=== PATIENT | male | born 1980 | race Caucasian/White ===

== ENCOUNTER 2017-11-21 09:00 | Emergency (ER) | payer BC ==
--- NOTE | 2017-11-21 09:23 | ED ---
Influenza-Like Illness - HPI Summary HPI Summary: 37M presents with fever and cough for past two days. He states that he feels ache. He has been taking dayquil with some relief. He admits to occasionally SOB but no chest pain. He denies any abdominal pain nausea or vomiting. He denies any sore throat. He admits to sinus congestion. He states has sinus infection. He was not able to attend work yesterday due to symptoms. He is a smoker. - Allergy/Home Medications Allergies/Adverse Reactions: Allergies Allergy/AdvReac Type Severity Reaction Status Date / Time No Known Allergies Allergy Verified 11/21/17 09:20 Home Medications: Home Medications NK [No Home Medications Reported] 11/21/17 [History Confirmed 11/21/17] PMH/Surg Hx/FS Hx/Imm Hx Endocrine/Hematology History: Denies: Hx Anticoagulant Therapy Cardiovascular History: Denies: Hx Myocardial Infarction - Surgical History Surgery Procedure, Year, and Place: testicular hernia Infectious Disease History: Denies: Hx Clostridium Difficile, Hx Hepatitis, Hx Human Immunodeficiency Virus (HIV), Hx of Known/Suspected MRSA, Hx Shingles, Hx Tuberculosis, Hx Known/ Suspected VRE, Hx Known/Suspected VRSA, History Other Infectious Disease, Traveled Outside the [place] in Last 30 Days - Family History Known Family History: Positive: Hypertension - Social History Alcohol Use: Occasionally Alcohol Amount: large volume but only once monthly Substance Use Type: Reports: None Smoking Status (MU): Heavy Every Day Tobacco Smoker Amount Used/How Often: 10 daily Review of Systems Positive: Fever, Fatigue Negative: Chest Pain Positive: Shortness Of Breath, Cough All Other Systems Reviewed And Are Negative: Yes Physical Exam Triage Information Reviewed: Yes Vital Signs Reviewed: Yes Appearance: Positive: Well-Appearing Skin: Positive: Warm, Dry Head/Face: Positive: Normal Head/Face Inspection Eyes: Positive: Normal, EOMI, JUAN MIGUEL, Conjunctiva Clear ENT: Positive: Pharynx normal, Nasal congestion, TMs normal Neck: Positive: Supple, Nontender, No Lymphadenopathy Respiratory/Lung Sounds: Positive: Clear to Auscultation, Breath Sounds Present Cardiovascular: Positive: Normal, RRR Abdomen Description: Positive: Nontender, Soft Bowel Sounds: Positive: Present Musculoskeletal: Positive: Normal Neurological: Positive: Normal Psychiatric: Positive: Normal Flu Symptom Course/Dx - Course Course Of Treatment: 37M presents with fever and cough for past two days. He states that he feels ache. He has been taking dayquil with some relief. He admits to occasionally SOB but no chest pain. He denies any abdominal pain nausea or vomiting. He denies any sore throat. He admits to sinus congestion. He states has sinus infection. He was not able to attend work yesterday due to symptoms. He is a smoker. on exam lungs CTA. pharynx normal. flu B pos. discussed and patient does not want tamiflu. patient understand and agrees with plan. - Diagnoses Differential Diagnosis/HQI/PQRI: Positive: Influenza, Pneumonia, Upper Respiratory Infection Provider Diagnoses: Influenza B Discharge - Discharge Plan Condition: Good Disposition: HOME Patient Education Materials: Influenza (ED) Forms: *Work Release Referrals: [facility] [Outside] Additional Instructions: Take Tylenol and ibuprofen for muscle aches and fever every 6 hours Saline rinse can be used multiple times a day for nasal congestion Use humidifier in room or place bowls of warm water around room for cough Try to drink fluids every hour and eat a small snack every 3 hours Establish care with primary Return to ED if develop any new or worsening symptoms
[2017-11-21 09:30] VITALS: BP 115/89
== END 2017-11-21 10:05 | disposition home or self-care (01) ==
LOC: UCEAST 09:00
DX: J10.1 Influenza due to other identified influenza virus with other respiratory manifestations (principal); F17.200 Nicotine dependence, unspecified, uncomplicated
CPT/HCPCS: 87502; 99211; G0463

== ENCOUNTER 2019-06-27 04:25 | Emergency (ER) | payer BC, OTHER ==
--- NOTE | 2019-06-27 05:35 | ED ---
Complex/Multi-Sys Presentation - HPI Summary HPI Summary: 39 year old M presenting to [facility] accompanied by complains of fevers, chills, congestion, cough, wheezing, myalgia, nausea since Tuesday06/25/19. The patient rates the pain 8/10 in severity. Symptoms aggravated by nothing. Symptoms alleviated by DayQuil and Sudafed with expectorant and nebulizer. Patient states he has had pneumonia before. Has recently been around sick people (his and child). Patient states he works for [employer]. Patient is a heavy every day tobacco smoker. - History Of Current Complaint Chief Complaint: EDFluSymptoms Time Seen by Provider: 06/27/19 05:23 Hx Obtained From: Patient Onset/Duration: Lasting Days - 06/25/19, Still Present Timing: Constant Severity Currently: Severe Aggravating Factor(s): Nothing Alleviating Factor(s): DayQuil and Sudafed with expectorant and nebulizer - Allergies/Home Medications Allergies/Adverse Reactions: Allergies Allergy/AdvReac Type Severity Reaction Status Date / Time No Known Allergies Allergy Verified 06/27/19 04:41 PMH/Surg Hx/FS Hx/Imm Hx Endocrine/Hematology History: Denies: Hx Diabetes Cardiovascular History: Denies: Hx Hypertension Respiratory History: Reports: Hx Pneumonia GI History: Denies: Hx Ulcer - Surgical History Surgery Procedure, Year, and Place: testicular hernia Infectious Disease History: No Infectious Disease History: Denies: Hx Clostridium Difficile, Hx Hepatitis, Hx Human Immunodeficiency Virus (HIV), Hx of Known/Suspected MRSA, Hx Shingles, Hx Tuberculosis, Hx Known/ Suspected VRE, Hx Known/Suspected VRSA, History Other Infectious Disease, Traveled Outside the in Last 30 Days - Family History Known Family History: Positive: Cardiac Disease, Hypertension, Other - Cancer Family History: uncle uses O2. alcoholism - Social History Alcohol Use: None Alcohol Amount: large volume but only once monthly Hx Substance Use: No Substance Use Type: Reports: None Hx Tobacco Use: Yes Smoking Status (MU): Heavy Every Day Tobacco Smoker Type: Cigarettes Amount Used/How Often: 10 daily Review of Systems Positive: Fever, Chills Positive: Other - congestion Positive: Cough, Other - wheezing Positive: Nausea Positive: Myalgia All Other Systems Reviewed And Are Negative: Yes Physical Exam - Summary Physical Exam Summary: General: Thing MALE. No acute distress. HEENT: Normocephalic, Atraumatic. Eyes: Conjuctiva normal, PERRL. Ears: TMs within normal limits. Nares: (-) discharge, (-) erythema. Oropharynx: Clear, mucous membranes moist, (-) exudates. Neck: Soft, FROM, (-) lymphadenopathy, (-) thyromegaly, (-) JVD. Cardiovascular: Normal sinus rhythm, (-) murmur. Lungs: Decreased breath sounds bilaterally, tight wheezing throughout Abdomen: Soft, non-tender, non-distended, (-) organomegaly, normal bowel sounds. Back: (-) CVA tenderness Extremities: No edema. Skin: Warm, dry, (-) rash. Neuro: Alert and oriented x3, no focal deficits. Psychiatric: Mood normal, affect normal. Triage Information Reviewed: Yes Vital Signs On Initial Exam: Initial Vitals Temp Pulse Resp BP Pulse Ox 99 F 95 18 136/92 95 06/27/19 04:25 06/27/19 04:06/27/19 04:25 06/27/19 04:06/27/19 04:25 Vital Signs Reviewed: Yes Diagnostics - Vital Signs Vital Signs Temp Pulse Resp BP Pulse Ox 06/27/19 04:25 99 F 95 18 136/92 95 - Laboratory Lab Statement: Any lab studies that have been ordered have been reviewed, and results considered in the medical decision making process. - Radiology CXR Radiology Interpretation Completed By: ED Physician Summary of Radiographic Findings: No acute process. Negative for pneumonia. Pending official report Re-Evaluation - Re-Evaluation First Eval Re-Evaluation Time: 06:04 Change: Improved Comment: I have discussed results with the patient and symptoms have resolved. Discussed symptoms that warrant immediate return to ED. Complex Multi-Symp Course/Dx Course Of Treatment: 39 year old M presenting to [facility] accompanied by complains of fevers, chills, congestion, cough, wheezing, myalgia, nausea since Tuesday06/25/19. Patient states he has had pneumonia before. Patient is a heavy every day tobacco smoker. Physical exam findings: thin male, decreased breath sounds bilaterally, tight wheezing throughout. CXR shows no acute process, negative for pneumonia. In the ED course, patient was given 1 Duoneb. The patient feels better after breathing treatment. Patient will be discharged home with prescription for prednisone, Z-pack, and Albuterol inhaler because patient is out of it. Patient was instructed to follow up from his primary care provider in 3 days. He was encouraged to quit smoking. He will be given a note for off work for 1 day. Patient was instructed to return to Emergency Department for new or worsening symptoms. Patient understands and is agreeable to this plan. - Diagnoses Provider Diagnoses: Bronchitis with bronchospasm, Tobacco abuse disorder Discharge ED - Sign-Out/Discharge Documenting (check all that apply): Patient Departure - Discharge Patient Received Moderate/Deep Sedation with Procedure: No - Discharge Plan Condition: Stable Disposition: HOME Prescriptions: Albuterol HFA INHALER* [Ventolin HFA Inhaler*] 2 puff INH Q4H PRN #1 mdi PRN Reason: cough Amoxicillin/Clavulanate TAB* [Augmentin TAB 875*] 875 mg PO BID #14 tab predniSONE TAB* [Deltasone 20 MG TAB*] 60 mg PO DAILY 5 Days #15 tab Patient Education Materials: How to Stop Smoking (ED), Acute Bronchitis (ED), Bronchospasm (ED) Forms: *Work Release Referrals: [facility] [Outside] - 3 Days Additional Instructions: Please quit smoking. Please follow up with [facility] in 3 days. Return to Emergency Department for any new or worsening symptoms. - Billing Disposition and Condition Condition: STABLE Disposition: Home - Attestation Statements Document Initiated by Marielle: Yes Documenting Scribe: Annette Blackman Provider For Whom Marielle is Documenting (Include Credential): Ary Clancy MD Scribe Attestation: IAnnette, scribed for Ary Clancy MD on 06/27/19 at 213. Scribe Documentation Reviewed: Yes Provider Attestation: The documentation as recorded by the Annette flower accurately reflects the service I personally performed and the decisions made by me, Ary Clancy MD Status of Scribe Document: Viewed
[2019-06-27] MEDS ORDERED: Albuterol/Ipratropium NEB.SOL* Albuterol 2.5 MG/Ipratropium 0.5 MG 3 ML INH ONE (05:36)
[2019-06-27] MEDS ORDERED: predniSONE TAB* 20 MG PO ONE (06:08)
[2019-06-27] MEDS ORDERED: Amoxicillin/Clavulanate TAB* 875 MG PO ONE (06:09)
[2019-06-27 06:24] VITALS: BP 142/68
== END 2019-06-27 06:22 | disposition home or self-care (01) ==
LOC: ED 04:25
DX: J20.9 Acute bronchitis, unspecified (principal); R11.0 Nausea; R50.9 Fever, unspecified; F17.210 Nicotine dependence, cigarettes, uncomplicated
CPT/HCPCS: 71046; 99213; 99283; A9270-GY; G0463; J7512